=== PATIENT | female | born 1950 | race Caucasian/White ===

== ENCOUNTER 2017-10-04 05:42 | Day surgery (SDC) | payer MEDICARE, OTHER ==
[2017-09-21 12:36] VITALS: BP 116/77
[~2017-10-04] VITALS: Ht 162.6 cm; Wt 87.8 kg
[~2017-10-04 05:42] MED LIST: CALC-116 PO; FURO20TA3 PO; GLUC-88 PO; HYDR12.53 PO; Iron Sulfate PO; LORA10TA3 PO; METO25TA35 PO; MOEX15TA2 PO; MONT10TA9 PO; POTA20TA14 PO; PUMP300C PO; ROSU20TA PO; UBID100C24 PO; VITA400C14 PO
[2017-10-04] MEDS ORDERED: LACTATED RINGERS 1,000 ML IV SCH (06:08)
[2017-10-04] MEDS ORDERED: CELE200C PO (06:23)
[2017-10-04] MEDS ORDERED: OXYC20TA59 PO (06:23)
[2017-10-04] MEDS ORDERED: LIDOCAINE-MPF 1%, 2ML INFIL PRN (06:30)
[2017-10-04] MEDS ORDERED: VANCOMYCIN 1,500 MG in SODIUM CHLORIDE 0.9% 250 ML IV ONE (06:30)
[2017-10-04] MEDS ORDERED: VANCOMYCIN PER PHARMACY MC PRN (06:30)
[2017-10-04] MEDS ORDERED: LIDOCAINE-MPF 1%, 2ML ONE (06:31)
[2017-10-04] MEDS ORDERED: ALBUTEROL INH (06:53)
[2017-10-04] MEDS ORDERED: TRANEXAMIC ACID 100 MG/ML, 10ML ONE ×2 (07:07)
[2017-10-04] MEDS ORDERED: SODIUM CHLORIDE 0.9% 100 ML ONE (07:07)
[2017-10-04] MEDS ORDERED: EPINEPHRINE 1 MG/ML, 1ML ONE (07:07)
[2017-10-04] MEDS ORDERED: KETOROLAC 60 MG/2 ML ONE (07:07)
[2017-10-04] MEDS ORDERED: NEOSPORIN OINT, 15GM ONE (07:07)
[2017-10-04] MEDS ORDERED: ROPIvacaine/PF 0.2%, 20 ML ONE (07:07)
[2017-10-04] MEDS ORDERED: morphine SULFATE/PF 1 MG/ML, 10ML ONE (07:07)
[2017-10-04] MEDS ORDERED: GLYCOPYRROLATE 0.2MG/1ML, 5ML ONE (07:33)
[2017-10-04] MEDS ORDERED: NEOSTIGMINE 1 MG/ML, 10ML ONE (07:33)
[2017-10-04] MEDS ORDERED: SUCCINYLCHOLINE 20 MG/ML, 10ML ONE (07:33)
[2017-10-04] MEDS ORDERED: DEXAMETHASONE 4 MG/ML, 1ML ONE (07:33)
[2017-10-04] MEDS ORDERED: ONDANSETRON 2MG/ML, 2ML ONE (07:33)
[2017-10-04] MEDS ORDERED: ROCURONIUM 10 MG/ML,10ML ONE (07:33)
[2017-10-04] MEDS ORDERED: CEFAZOLIN 1,000 MG ONE (07:33)
[2017-10-04] MEDS ORDERED: PROPOFOL 10 MG/ML, 20ML ONE (07:33)
[2017-10-04] MEDS ORDERED: ACETAMINOPHEN 325 MG TABLET PO PRN ×3 (08:00→11:30)
[2017-10-04] MEDS ORDERED: METOCLOPRAMIDE 5 MG/ML, 2ML IV PRN ×2 (08:00)
[2017-10-04] MEDS ORDERED: FENTANYL PF 100 MCG/2ML IV PRN (08:00)
[2017-10-04] MEDS ORDERED: OXYcodone 5 MG/5 ML ORAL.SOL UDC PO PRN ×2 (08:00)
[2017-10-04] MEDS ORDERED: HYDROmorphone 1 MG/ML, 1ML IV PRN ×2 (08:00)
[2017-10-04] MEDS ORDERED: hydrALAzine 20 MG/ML, 1ML IV PRN ×2 (08:00)
[2017-10-04] MEDS ORDERED: LABETALOL 5MG/ML, 20ML IV PRN ×2 (08:00)
[2017-10-04] MEDS ORDERED: ONDANSETRON 2MG/ML, 2ML IVPush PRN ×3 (08:00→11:30)
[2017-10-04] MEDS ORDERED: OXYcodone 5 MG/5 ML ORAL.SOL UDC ONE (09:49)
[2017-10-04] MEDS ORDERED: ACETAMINOPHEN 650 MG/20.3 ML UDC ONE ×2 (09:49→09:50)
[2017-10-04] MEDS ORDERED: FENTANYL PF 100 MCG/2ML ONE (10:10)
[2017-10-04] MEDS: FENTANYL PF 100 MCG/2ML IV PRN ×2 (10:10→10:20)
[2017-10-04] MEDS ORDERED: SENNA/DOCUSATE TABLET PO PRN (11:30)
[2017-10-04] MEDS ORDERED: BISACODYL 10 MG SUPP PR PRN (11:30)
[2017-10-04] MEDS ORDERED: ZOLPIDEM 5MG TABLET PO PRN (11:30)
[2017-10-04] MEDS ORDERED: ALUMINUM/MAG/SIMETHICONE 30 ML UDC PO PRN (11:30)
[2017-10-04] MEDS ORDERED: DIPHENHYDRAMINE 25 MG CAPSULE PO PRN (11:30)
[2017-10-04] MEDS ORDERED: HYDROcodone/APAP 7.5-325MG/15ML UDC PO PRN (11:30)
[2017-10-04] MEDS ORDERED: MAGNESIUM HYDROXIDE 8%, 30ML UDC PO PRN (11:30)
[2017-10-04 12:37] VITALS: BP 97/61
[2017-10-04] MEDS: CEFAZOLIN PMX 1GM/50ML 50 ML IVPB SCH ×2 (15:56→23:29)
[2017-10-04] MEDS: POTASSIUM CHLORIDE 10 MEQ in D5%-0.45% NACL 1,000 ML IV SCH (15:56)
[2017-10-04 18:50] VITALS: BP 94/57
[2017-10-04] MEDS ORDERED: VANCOMYCIN PMX 1GM/200ML 200 ML IVPB ONE (19:30)
[2017-10-04] MEDS: DOCUSATE 100 MG CAPSULE PO SCH (23:29)
[2017-10-04] MEDS: OXYcodone IR 5MG TABLET PO PRN (23:29)
[2017-10-04 23:49] VITALS: BP 112/56
[2017-10-05] MEDS: OXYcodone IR 5MG TABLET PO PRN ×3 (00:22→14:26)
[2017-10-05 04:00] VITALS: BP 104/65
[2017-10-05] MEDS ORDERED: ENOXAPARIN 30 MG/0.3 ML SQ SCH (06:00)
[2017-10-05 07:00] VITALS: BP 112/63
[2017-10-05] MEDS ORDERED: HYDROCHLOROTHIAZIDE 12.5 MG CAPSULE PO SCH (09:00)
[2017-10-05] MEDS ORDERED: POTASSIUM CHLORIDE 20 MEQ TAB.ER.PRT PO SCH (09:00)
[2017-10-05] MEDS ORDERED: MULTIVITAMINS/MINERALS TABLET PO SCH (09:00)
[2017-10-05] MEDS ORDERED: MOEXIPRIL 15 MG PO SCH (09:00)
[2017-10-05] MEDS: DOCUSATE 100 MG CAPSULE PO SCH (10:58)
[2017-10-05] MEDS: POTASSIUM CHLORIDE 10 MEQ in D5%-0.45% NACL 1,000 ML IV SCH (11:00)
[2017-10-05] MEDS ORDERED: KETOROLAC 30 MG/1 ML IV SCH (11:30)
[2017-10-05 14:29] VITALS: BP 130/77
[2017-10-05 16:37] VITALS: BP 105/64
== END 2017-10-05 17:15 | disposition home or self-care (01) ==
LOC: OUT 05:42 → EDSTATUS 07:30 → 4NOR 10:54 → DCLOUNGE 10-05 17:00 → OUT 10-05 17:15
PROVIDERS: ATTEND Orthopaedic Surgery
DX: M17.11 Unilateral primary osteoarthritis, right knee (principal); E78.5 Hyperlipidemia, unspecified; I10 Essential (primary) hypertension; G43.909 Migraine, unspecified, not intractable, without status migrainosus; I25.10 Atherosclerotic heart disease of native coronary artery without angina pectoris; Z98.890 Other specified postprocedural states; Z88.1 Allergy status to other antibiotic agents; Z88.8 Allergy status to other drugs, medicaments and biological substances
CPT/HCPCS: 27447; 97116; 97150; 97162; 97165; C1713; C1776; J0171; J0330; J0690; J1100; J1650; J1885; J2250; J2274; J2405; J2704; J2710; J2795; J3010; J3370; J3480; J3490; J7050; J7120